=== PATIENT | male | born 1950 | race Caucasian/White ===

== ENCOUNTER → 2018-02-05 | Outpatient (CLI) | payer MEDICARE, OTHER ==
--- NOTE | 2018-02-05 12:46 | RADIOLOGY REPORT (SQ) ---
EXAM DESCRIPTION: CT LUMBAR SPINE WITHOUT COMPLETED DATE/TIME: 02/05/2018 12:07 pm REASON FOR STUDY: OTHER INTERVERTEBRAL DISC DEGENERATION, LUMBAR REGION M51.36 OTHER INTERVERTEBRAL DISC DEGENERATION, LUMBAR REGION COMPARISON: None. TECHNIQUE: Axial images acquired through the lumbar spine without intravenous contrast. Images revi ewed with lung, soft tissue and bone windows. Reconstructed coronal and sagittal MPR images reviewed . All images stored on PACS. All CT scanners at this facility use dose modulation, iterative reconstruction, and/or weight based d osing when appropriate to reduce radiation dose to as low as reasonably achievable (ALARA). [facility]: Dose Right [facility]: CareDose [facility]: Dose Right [facility]: Teradose 4D [facility]: [employer] RADIATION DOSE: mGy. LIMITATIONS: None. FINDINGS: There is a mild convex left scoliosis. Grade 1 anterolisthesis L3 relative to L2. There is vacuum disc at L5-S1. Disc space narrowing and osteophyte formation L1-2 and L2-3. No obvious ac lala disc herniation. Mild spinal stenosis L3-4. Facet arthropathy L3- 4 through L5-S1. No paraspin al mass. IMPRESSION: Spondylosis and facet arthropathy. Mild spinal stenosis. TECHNICAL DOCUMENTATION: JOB ID: [id number] Quality ID # 436: Final reports with documentation of one or more dose reduction techniques (e.g., Au tomated exposure control, adjustment of the mA and/or kV according to patient size, use of iterative reconstruction technique) 2010 [employer]- All Rights Reserved Reading location - IP/workstation name: [email or web address]
== END ==
LOC: RAD 11:44
PROVIDERS: ATTEND Physician Assistant
DX: M51.36 Other intervertebral disc degeneration, lumbar region (principal)
CPT/HCPCS: 72131

== ENCOUNTER → 2018-10-05 | Outpatient (CLI) | payer MEDICARE, OTHER ==
--- NOTE | 2018-10-05 10:32 | RADIOLOGY REPORT (SQ) ---
EXAM DESCRIPTION: CT RT LOWER EXTREMITY WITHOUT COMPLETED DATE/TIME: 10/05/2018 7:43 am REASON FOR STUDY: PAIN IN RIGHT KNEE M25.561 PAIN IN RIGHT KNEE COMPARISON: None TECHNIQUE: Axial imaging performed through the right knee with reformatted coronal and sagittal imag ing windowed for bone and soft tissues. Images saved to PACS. 3D IMAGING: Were 3D images as MIP, SSD, or volume rendering performed at the work station? No. All CT scanners at this facility use dose modulation, iterative reconstruction, and/or weight based d osing when appropriate to reduce radiation dose to as low as reasonably achievable (ALARA). [facility]: Dose Right [facility]: CareDose [facility]: Dose Right [facility]: Teradose 4D [facility]: [email or web address] LIMITATIONS: None. RADIATION DOSE: CT Rad equipment meets quality standard of care and radiation dose reduction techniq ues were employed. CTDIvol: 4.6 mGy. DLP: 142 mGy-cm. mGy. FINDINGS: SOFT TISSUES: No obvious swelling or foreign body. BONES: No acute fracture. No dislocation. Joint spaces are well maintained. There is osteophytic s purring off the patella at the insertion site of the patellar tendon. MINERALIZATION: Normal. OTHER: There is a small joint effusion. There is a small popliteal cyst. IMPRESSION: Small joint effusion. No acute fracture or dislocation. Joint spaces are well maintain ed. TECHNICAL DOCUMENTATION: JOB ID: [id number] Quality ID # 436: Final reports with documentation of one or more dose reduction techniques (e.g., Au tomated exposure control, adjustment of the mA and/or kV according to patient size, use of iterative reconstruction technique) 2010 [employer]- All Rights Reserved Reading location - IP/workstation name: [email or web address]
== END ==
LOC: RAD 07:03
PROVIDERS: ATTEND Physician Assistant
DX: M25.561 Pain in right knee (principal)

== ENCOUNTER → 2018-12-14 | Day surgery (SDC) | payer MEDICARE, OTHER ==
[~2018-12-14] MED LIST: METHYLPREDNISOLONE ACETATE INJ 80 MG/1 ML VIAL ONE
--- NOTE | 2018-12-14 14:55 | RADIOLOGY REPORT (SQ) ---
EXAM DESCRIPTION: INJECT/ASPIR HIP/SHLDR/KNEE; FLUORO/NEEDLE PLACEMENT COMPLETED DATE/TIME: 12/14/2018 2:46 pm REASON FOR STUDY: M25.551 PAIN IN RIGHT HIP M25.551 PAIN IN RIGHT HIP COMPARISON: None. FLUOROSCOPY TIME: 0.2 minutes 1 images saved to PACS. LIMITATIONS: None. PROCEDURE: SITE OF INJECTION: Anterior right hip. LOCALIZING CONTRAST TYPE AND DOSE: 1 cc Omnipaque 300 MEDICATION TYPE AND DOSE: 80 mg of Medrol. 5 cc Sensorcaine. Using local anesthesia and sterile technique with fluoroscopic guidance, the needle was advanced into the joint. Iodinated contrast was injected to verify intraarticular placement. This was followed by therapeutic injection of the indicated medications. The needle was removed. There were no immediat e complications. Preprocedure pain level: 4.0/5. Postprocedure pain level: 2/5. IMPRESSION: THERAPEUTIC INJECTION OF THE right hip JOINT ABOVE. COMMENT: Patient medication list reviewed: Yes- Quality ID# [id number]:Eligible professional attests to doc umenting in the medical record they obtained, updated, or reviewed the patient's current medications. . Quality ID 145: Final reports for procedures using fluoroscopy that document radiation exposure shirin jemima, or exposure time and number of fluorographic images (if radiation exposure indices are not avail able) TECHNICAL DOCUMENTATION: JOB ID: [id number] [employer]- All Rights Reserved Reading location - IP/workstation name: [email or web address]
== END ==
LOC: RAD 13:49
PROVIDERS: ATTEND Physician Assistant
DX: M25.551 Pain in right hip (principal)
CPT/HCPCS: 20610; 77002; J1040

== ENCOUNTER → 2019-02-08 | Outpatient (CLI) | payer MEDICARE, OTHER ==
--- NOTE | 2019-02-08 09:05 | RADIOLOGY REPORT (SQ) ---
EXAM DESCRIPTION: CT LUMBAR SPINE WITHOUT COMPLETED DATE/TIME: 02/08/2019 7:28 am REASON FOR STUDY: LOWER BACK PAIN (M54.5) M54.5 LOW BACK PAIN COMPARISON: 02/05/2018 TECHNIQUE: Axial images acquired through the lumbar spine without intravenous contrast. Images revi ewed with lung, soft tissue and bone windows. Reconstructed coronal and sagittal MPR images reviewed . All images stored on PACS. All CT scanners at this facility use dose modulation, iterative reconstruction, and/or weight based d osing when appropriate to reduce radiation dose to as low as reasonably achievable (ALARA). [facility]: Dose Right [facility]: CareDose [facility]: Dose Right [facility]: Teradose 4D [facility]: [employer] RADIATION DOSE: CT Rad equipment meets quality standard of care and radiation dose reduction techniq ues were employed. CTDIvol: 31.2 mGy. DLP: 1043 mGy-cm. mGy. LIMITATIONS: None. FINDINGS: SEGMENTATION: Normal. No transitional anatomy. ALIGNMENT: Normal. VERTEBRAL BODIES: No fractures. No dislocation. No acute findings. DISCS: There is annular disc bulging at L2-L3, L4-L5 and L5-S1. Mild central canal narrowing at L2-L 3 with asymmetric narrowing of the left neural foramina. Mild central canal narrowing at L3-L4 no de finite foraminal narrowing. Annular bulging at 5 1 but no central stenosis or foraminal narrowing. PEDICLES, TRANSVERSE PROCESSES: No fractures. No dislocation. No acute findings. FACETS, POSTERIOR ELEMENTS: No fractures. No dislocation. No spinal stenosis. HARDWARE: No hardware. There has been posterior decompression at L4-L5. VISUALIZED RIBS: No fractures. SOFT TISSUES: No significant or acute finding in adjacent soft tissues. OTHER: No other significant finding. IMPRESSION: Postsurgical changes at L4-L5 with posterior decompression. There is mild central canal narrowing at L2-L3 with asymmetric narrowing of the left neural foramina. There is mild central can al narrowing at L3-L4 but no foraminal narrowing. TECHNICAL DOCUMENTATION: JOB ID: [id number] Quality ID # 436: Final reports with documentation of one or more dose reduction techniques (e.g., Au tomated exposure control, adjustment of the mA and/or kV according to patient size, use of iterative reconstruction technique) 2010 [employer]- All Rights Reserved Reading location - IP/workstation name: [email or web address]
== END ==
LOC: RAD 07:09
PROVIDERS: ATTEND Physician Assistant
DX: M54.5 Low back pain (principal)
CPT/HCPCS: 72131